=== PATIENT | female | born 1980 | race Caucasian/White ===

== ENCOUNTER 2018-05-11 09:34 | Emergency (ER) | payer SELFPAY ==
[2018-05-11 09:39] VITALS: BP 108/70
--- NOTE | 2018-05-11 09:44 | ER Document Report ---
ED ENT - General Chief Complaint: Eye Problem Stated Complaint: FACIAL SWELLING Time Seen by Provider: 05/11/18 09:43 Mode of Arrival: Ambulatory Information source: Patient Notes: 37-year-old female presents to ED for complaint of pain redness and swelling to the forehead and both eyes for 4 days. She states she got sunburned will bad and had pain swelling and irritation to the forehead for 5 days. She states that the eyelids were swollen also. She states that she had some blisters and she picked up the blisters and scrubbed him and now they be have become inflamed. She states she has not injured her eyes and the eyes themselves do not hurt is the eyelids. Patient is alert oriented respirations regular and unlabored speaking in full sentences. - HPI Patient complains to provider of: Other - Cellulitis of the forehead Onset: Other - swelling to the eyelids 5 days Onset/Duration: Gradual Quality of pain: Other - Sure burning Severity: Mild Pain Level: 1 Context: Other - Sunburn Location of pain: Face Associated symptoms: Other - Eyelids sunburn to the forehead and face with cellulitis to the forehead and swelling to the eyelids Similar symptoms previously: No Recently seen / treated by doctor: No - Related Data Allergies/Adverse Reactions: No Known Allergies Allergy (Unverified 05/11/18 09:36) Past Medical History - General Information source: Patient - Social History Smoking Status: Never Smoker Frequency of alcohol use: None Drug Abuse: None Occupation: [email or web address] Lives with: Family Family History: Reviewed & Not Pertinent Patient has suicidal ideation: No Patient has homicidal ideation: No - Past Medical History Cardiac Medical History: Reports: None Pulmonary Medical History: Reports: None EENT Medical History: Reports: None Neurological Medical History: Reports: None Endocrine Medical History: Reports: None Renal/ Medical History: Reports: None Malignancy Medical History: Reports: None GI Medical History: Reports: None Musculoskeletal Medical History: Reports None Skin Medical History: Reports Hx Cellulitis - For him Psychiatric Medical History: Reports: None Traumatic Medical History: Reports: None Infectious Medical History: Reports: None Surgical Hx: Negative Past Surgical History: Reports: None Review of Systems - Review of Systems Constitutional: No symptoms reported EENT: Other - Swelling to the eyelids Cardiovascular: No symptoms reported Respiratory: No symptoms reported Gastrointestinal: No symptoms reported Genitourinary: No symptoms reported Female Genitourinary: No symptoms reported Musculoskeletal: No symptoms reported Skin: Change in color - Red inflamed forehead, Other - Several areas to the forehead where she has picked the blisters when she got a sunburn. Hematologic/Lymphatic: No symptoms reported Neurological/Psychological: No symptoms reported -: Yes All other systems reviewed and negative Physical Exam - Vital signs Vitals: Temp Pulse Resp BP Pulse Ox 98.6 F 77 16 108/70 100 05/11/18 09:38 05/11/18 09:38 05/11/18 09:38 05/11/18 09:38 05/11/18 09:38 Interpretation: Normal - General General appearance: Appears well, Alert - HEENT Head: Normocephalic, Atraumatic, Tenderness, Other - Erythematous forehead with several scabs Eyes: Normal, Other - Swelling the bilateral eyelids due to swelling to the forehead Pupils: PERRL Ears: Normal External canal: Normal Tympanic membrane: Normal Sinus: Normal Nasal: Normal Mouth/Lips: Normal Mucous membranes: Normal Pharynx: Normal - Respiratory Respiratory status: No respiratory distress Chest status: Nontender Breath sounds: Normal Chest palpation: Normal - Cardiovascular Rhythm: Regular Heart sounds: Normal auscultation Murmur: No - Abdominal Inspection: Normal Distension: No distension Bowel sounds: Normal Tenderness: Nontender Organomegaly: No organomegaly - Back Back: Normal, Nontender - Extremities General upper extremity: Normal inspection, Nontender, Normal color, Normal ROM, Normal temperature General lower extremity: Normal inspection, Nontender, Normal color, Normal ROM, Normal temperature, Normal weight bearing. No: Paresh's sign - Neurological Neuro grossly intact: Yes Cognition: Normal Orientation: AAOx4 [place] Coma Scale Eye Opening: Spontaneous [place] Coma Scale Verbal: Oriented [place] Coma Scale Motor: Obeys Commands [place] Coma Scale Total: 15 Speech: Normal Motor strength normal: LUE, RUE, LLE, RLE Sensory: Normal - Psychological Associated symptoms: Normal affect, Normal mood - Skin Skin Temperature: Warm Skin Moisture: Dry Skin Color: Normal Character of irregularity: Erythematous - Forehead with several scabbed areas Irregularity with: Swelling - Eyelids, Tenderness Course - Re-evaluation Re-evalutation: 05/11/18 11:41 She was treated with Keflex and Bactroban and instructed to use mild soap to gently wash her forehead and apply Bactroban and to take Keflex until completed. Patient instructed to follow-up primary care doctor for any increase in symptoms she can return to the ED. Patient was discharged home. - Vital Signs Vital signs: Temp Pulse Resp BP Pulse Ox 98.6 F 77 16 108/70 100 05/11/18 09:38 05/11/18 09:38 05/11/18 09:38 05/11/18 09:38 05/11/18 09:38 Discharge - Discharge Clinical Impression: Facial cellulitis Condition: Stable Disposition: HOME, SELF-CARE Instructions: Family Physicians / Practices Additional Instructions: CELLULITIS: You have an infection of your skin and underlying soft tissues called cellulitis. This is due to bacteria, which can enter through any break in the skin, or even through an irritated hair follicle. Untreated, cellulitis will usually worsen. Antibiotics are required. Usually, warm packs or warm soaks, and elevation of the infected area are recommended. You should start getting better within 24 to 36 hours. Most infections respond quickly to the right medication. Follow-up care is important, however, to check for abscess (boil) formation, unsuspected foreign body, or resistant infection. If you develop fever, chills, or if the area of infection is becoming rapidly more swollen or painful, call the doctor at once. Cephalexin The antibiotic you've been prescribed is a member of the cephalosporin class. This type of antibiotic covers a wide variety of infections, including those of the skin, lungs, and urinary tract. It's useful for staph infections. This antibiotic is slightly similar to the penicillin family. In rare cases, a person who is allergic to penicillin will also be allergic to this medication. If you have had a severe allergic reaction to penicillin, and have not taken this antibiotic since that time, notify your doctor. Antibiotics which cover many germs ("broad spectrum" antibiotics) are more likely to cause diarrhea or "yeast" infections. Women prone to vaginal yeast problems may suffer an attack after taking this antibiotic. In infants, oral thrush (white spots "stuck" on the cheek) or yeast diaper rash may result. See your doctor if these problems occur. Call at once if you develop itching, hives, shortness of breath, or lightheadedness. Bactroban Ointment Bactroban is very effective against the germs that cause infection within the skin. It's useful for impetigo and other superficial infections. Deeper infections require antibiotics by mouth or by shot. Apply the medicine three times a day for one week, or longer if your doctor has advised it. Stop the medicine and call your doctor if you develop large blisters, severe itching, increasing pain, swelling, fever, or spreading redness. FOLLOW-UP CARE: If you have been referred to a physician for follow-up care, call the physicians office for an appointment as you were instructed or within the next two days. If you experience worsening or a significant change in your symptoms, notify the physician immediately or return to the Emergency Department at any time for re-evaluation. Prescriptions: Cephalexin Monohydrate [Keflex 500 mg Capsule] 500 mg PO Q6H 5 Days capsule Forms: Return to Work
[2018-05-11] MEDS ORDERED: CEPHALEXIN 500 MG CAPSULE PO ONE (10:26)
[2018-05-11] MEDS ORDERED: MUPIROCIN 2% OINTMENT 22 GM TP ONE (10:26)
== END 2018-05-11 10:42 | disposition home or self-care (01) ==
LOC: ER 09:34
DX: L03.211 Cellulitis of face (principal); L55.1 Sunburn of second degree
CPT/HCPCS: 99282; J3490

== ENCOUNTER 2018-05-24 19:22 | Emergency (ER) | payer SELFPAY ==
[2018-05-24 19:41] VITALS: BP 130/79
[2018-05-24] MEDS ORDERED: HYDROCODONE/ACETAMINOPHEN 5-325 MG (6 TAB/ER DISP) PO PRN (20:33)
[2018-05-24] MEDS ORDERED: LIDOCAINE 5% (700 MG) TRANSDERMAL ADH..PATCH TP ONE (20:33)
--- NOTE | 2018-05-24 20:39 | ER Document Report ---
ED Neck/Back Problem - General Chief Complaint: Neck Problem Stated Complaint: NECK PAIN Time Seen by Provider: 05/24/18 20:02 Primary Care Provider: [facility] [Provider Group] - Follow up as needed [facility] [Provider Group] - Follow up as needed Mode of Arrival: Ambulatory Notes: 37-year-old female presents to ED for complaint of mid neck pain going down her right arm for more than a week. She states her sister has a friend who is a doctor but she does not remember her name is aware the office was but her sister took her to the office and she said she may have a slipped disc. She does not remember when she went either. She states she works too much to be able to go to a doctor and she does not have any insurance and cannot afford to go to a [facility]. I have explained to her that she would need a better evaluation of this neck then just get pain medicines. She states she does not want a CAT scan at now because she knows it is not broken. She states she has been taking 800 mg of ibuprofen 4 times a day for the pain and is not working. I have explained to her she is taking too much ibuprofen as this will injure her kidneys. Patient just kept insisting that she just needs some pain medication and go home as she cannot afford to go to a doctor. TRAVEL OUTSIDE OF THE [place] IN LAST 30 DAYS: No - HPI Patient complains to provider of: Pain, Neck. No: Injury Onset: Other - More than a week but she does not know exactly how long Onset: Gradual Timing: Worse Quality of pain: Other - Sharp pain in her neck and numbness and tingling down her arm Recent injury: No Associated symptoms: Numbness/tingling - Down her right arm, Radiation to arm, Other - Neck pain with no injury. denies: Incontinence, Like prior neck/back pain, Motor loss, Radiation to chest, Radiation to leg, Sensory loss, Sweaty, Unable to urinate, Lower back pain, Upper back pain Exacerbated by: Movement of neck Relieved by: Nothing Similar symptoms previously: Yes Recently seen / treated by doctor: No - Related Data Allergies/Adverse Reactions: No Known Allergies Allergy (Verified 05/24/18 19:24) Past Medical History - General Information source: Patient - Social History Smoking Status: Never Smoker Frequency of alcohol use: None Drug Abuse: None Lives with: Family Family History: Reviewed & Not Pertinent Patient has suicidal ideation: No Patient has homicidal ideation: No - Past Medical History Cardiac Medical History: Reports: None Pulmonary Medical History: Reports: None EENT Medical History: Reports: None Neurological Medical History: Reports: None Endocrine Medical History: Reports: None Renal/ Medical History: Reports: None Malignancy Medical History: Reports: None GI Medical History: Reports: None Musculoskeletal Medical History: Reports None Skin Medical History: Reports Hx Cellulitis - For him Psychiatric Medical History: Reports: None Traumatic Medical History: Reports: None Infectious Medical History: Reports: None Surgical Hx: Negative Past Surgical History: Reports: None - Immunizations Immunizations up to date: Yes Review of Systems - Review of Systems Constitutional: No symptoms reported EENT: No symptoms reported Cardiovascular: No symptoms reported Respiratory: No symptoms reported Gastrointestinal: No symptoms reported Genitourinary: No symptoms reported Female Genitourinary: No symptoms reported Musculoskeletal: Neck pain Skin: No symptoms reported Hematologic/Lymphatic: No symptoms reported Neurological/Psychological: Numbness - Right arm, Tingling - Down right arm -: Yes All other systems reviewed and negative Physical Exam - Vital signs Vitals: Temp Pulse Resp BP Pulse Ox 98.2 F 67 16 130/79 H 100 05/24/18 19:40 05/24/18 19:40 05/24/18 19:40 05/24/18 19:40 05/24/18 19:40 Interpretation: Normal - General General appearance: Appears well, Alert - HEENT Head: Normocephalic, Atraumatic Eyes: Normal Pupils: PERRL - Respiratory Respiratory status: No respiratory distress Chest status: Nontender Breath sounds: Normal Chest palpation: Normal - Cardiovascular Rhythm: Regular Heart sounds: Normal auscultation Murmur: No - Abdominal Inspection: Normal Distension: No distension Bowel sounds: Normal Tenderness: Nontender Organomegaly: No organomegaly - Back Back: Normal, Tender, Vertebra tenderness - neck. No: Deformity/step-off, CVA tenderness, Scars, Scoliosis, Wounds - Extremities General upper extremity: Normal inspection, Nontender, Normal color, Normal ROM, Normal temperature, Other - She states she has pain with range of motion, but has full range of motion, 5/5 drinks to arm elbow and wrist General lower extremity: Normal inspection, Nontender, Normal color, Normal ROM, Normal temperature, Normal weight bearing. No: Paresh's sign Shoulder: Normal, Nontender Arm: Normal, Nontender Elbow: Normal, Nontender Forearm: Normal, Nontender Wrist: Normal, Nontender Hand: Normal, Nontender - Neurological Neuro grossly intact: Yes Cognition: Normal Orientation: AAOx4 [place] Coma Scale Eye Opening: Spontaneous [place] Coma Scale Verbal: Oriented [place] Coma Scale Motor: Obeys Commands [place] Coma Scale Total: 15 Speech: Normal Motor strength normal: LUE, RUE, LLE, RLE Sensory: Normal - Psychological Associated symptoms: Normal affect, Normal mood - Skin Skin Temperature: Warm Skin Moisture: Dry Skin Color: Normal Course - Re-evaluation Re-evalutation: 05/24/18 20:42 We will treat with a [place] dispense pack and a Lidoderm patch to the area she states is painful area of her neck and have discharged her home with a [place] dispense pack I have reiterated multiple times she needs to follow-up with her primary doctor and get further evaluation for her numbness and tingling. Patient is stated she cannot go to a doctor as she does not have money and does not have insurance. I have informed her that this is only a short-term fix that it will not fix her problem and she needs to follow-up with another provider. - Vital Signs Vital signs: Temp Pulse Resp BP Pulse Ox 98.2 F 67 16 130/79 H 100 05/24/18 19:40 05/24/18 19:40 05/24/18 19:40 05/24/18 19:40 05/24/18 19:40 Discharge - Discharge Clinical Impression: Neck pain Condition: Stable Disposition: HOME, SELF-CARE Additional Instructions: You have been seen today for neck pain to the mid neck area. You state you are having numbness and tingling down your right arm. You still have full strength to your arm. I have treated you with a Lidoderm patch in the emergency room if this helps your pain you can buy [id number] Lidoderm patches or use Aspercreme lidocaine cream to the area. I have given you a [place] dispense pack you can take 1 every 6 hours for your pain but she would need to follow-up with her primary doctor because this is all of the narcotics I can give you for this problem. The emergency room cannot give you refills of this narcotic you need to be assessed by a provider. Oral Narcotic Medication You have been given a prescription for pain control. This medication is a narcotic. It's best taken with food, as nausea can result if taken on an empty stomach. Don't operate machinery or drive within six hours of taking this medication. Do not combine this medicine with alcohol, or with any medication which can cause sedation (such as cold tablets or sleeping pills) unless you get permission from the physician. Narcotics tend to cause constipation. If possible, drink plenty of fluids and eat a diet high in fiber and fruits. Ibuprofen Ibuprofen is an excellent, safe drug for pain control. In addition, it has potent antiinflammatory effects which are beneficial, especially in the treatment of injuries, arthritis, or tendonitis. It's best to take ibuprofen with food. Persons with ulcer disease or allergy to aspirin should notify their physician of this before taking ibuprofen. Take the medication exactly as prescribed. Don't take additional doses unless instructed to do so by your doctor. If you develop wheezing, shortness of breath, hives, faintness, stomach pain, vomiting, or dark black stools, return for re-evaluation at once. Ice Packs Apply ice packs frequently against the painful area. Many different schedules are recommended, such as "20 minutes on, 20 minutes off" or "one hour ice, two hours rest." If you need to work, you may need to go longer between ice treatments. You should plan to have the area ice packed AT LEAST one fourth of the time. The ice should be applied over the wrap, tape, or splint, or over a layer of cloth -- not directly against the skin. Some ice bags have a built-in cloth and can be put directly on the skin. FOLLOW-UP CARE: If you have been referred to a physician for follow-up care, call the physicians office for an appointment as you were instructed or within the next two days. If you experience worsening or a significant change in your symptoms, notify the physician immediately or return to the Emergency Department at any time for re-evaluation. Forms: Elevated Blood Pressure Referrals: [facility] [Provider Group] - Follow up as needed [facility] [Provider Group] - Follow up as needed
== END 2018-05-24 20:49 | disposition home or self-care (01) ==
LOC: ER 19:22
DX: M54.2 Cervicalgia (principal); M79.601 Pain in right arm; R20.0 Anesthesia of skin
CPT/HCPCS: 99283